=== PATIENT | female | born 1960 | race Caucasian/White ===

== ENCOUNTER 2024-12-25 20:04 | Emergency (ER) | payer OTHER, SELFPAY ==
[2024-12-25 20:10] VITALS: BP 134/85
--- NOTE | 2024-12-25 21:31 | ED.GENMED ---
History of Present Illness
General
Chief Complaint: Fatigue
Time Seen by Provider: 12/25/24 20:32
History of Present Illness
History of Present Illness:
64-year-old female presents the emergency department for sensation of shortness of breath. She states she feels as though she cannot take a deep breath ongoing for the past 2 weeks. She is also concerned because she had an outpatient EKG done
earlier this week with the machine interpretation reading 'left atrial enlargement' and she was advised by her primary care physician to come to the emergency department. Denies chest pain at this time. No fevers or chills. She also is concerned
about feeling fatigued all the time. Of note she is on numerous psychiatric medications and was recently started on naltrexone 2 weeks ago
Review of Systems
Review of Systems
Allergies reviewed?: Yes
All Other Systems: ROS reviewed and negative except as documented in HPI and ROS
Phy Exam
Physical Exam
Physical Exam:
GEN: Well appearing, NAD, WDWN
HEENT: Oral mucosa moist, no scleral icterus
Cardiac: Regular rate and rhythm, no murmurs
Lung: No respiratory distress, no tachypnea, lungs clear to auscultation bilaterally
MSK: No gross deformity or injuries
Skin: Good color, no pallor or jaundice, no rashes
Neuro: AO x3, moves all extremities freely
Psych: Calm, cooperative
Course
Orders/Labs/Results
Orders:
Orders
12/25/24 20:05
Electrocardiogram (*1) Urgent
Reason for Study: Chest Pain
EKG- Treatment ONCE
12/25/24 20:54
CR Chest - 2 Views Urgent
Comment:
Reason For Exam: SOB
Vital Signs
Initial and Last Documented VS:
Initial Vital Signs
Temp Pulse Resp BP Pulse Ox
97.7 F 66 16 134/85 98
12/25/24 20:10 12/25/24 20:10 12/25/24 20:10 12/25/24 20:10 12/25/24 20:10
Last Documented Vital Signs
Temp Pulse Resp BP Pulse Ox
97.7 F 66 16 133/76 93
12/25/24 20:10 12/25/24 21:43 12/25/24 21:43 12/25/24 21:43 12/25/24 21:43
MDM/Problems Addressed
MDM/Problems Addressed:
I have encouraged the patient to discuss with her primary prescriber the multitude of psychiatric medications however have advised her to discontinue naltrexone at this point given that it seems to correlate with the onset of her symptoms. Chest
x-ray is clear, do not see any indication for labs at this time
*Critical Care Note
Total Time (30-74mins, 75-104mins- exclusive of procedures): Not Applicable
ED Attending Note
-
Portions of this chart may have been created with voice recognition software.� Occasional wrong word or��sound alike� substitutions may have occurred due to the inherent limitations of voice recognition software.
Discharge Plan
Departure
Patient Disposition: Home (Routine Discharge)
Date of Disposition: 12/25/24
Time of Disposition: 21:31
Patient with high blood pressure during this ER visit?: No
Discharge Problem:
Shortness of breath
Instructions: Fatigue (DC)
Referrals:
Estrella Carcamo DO [Family Provider] -
Activity Restrictions/Additional Instructions:
Your EKG shows no significant abnormalities
Your Chest X ray is normal
You have no obvious heart murmurs on examination
Discuss adjustments to your psychiatric medications with your primary prescriber
Interventions
Interventions:
*Risk Screen - Suicide Last Done: 12/25/24 21:13
*General Assessment Last Done: 12/25/24 21:13
*Neglect/Abuse Screening Last Done: 12/25/24 21:13
ED- Fall Risk Assessment Last Done: 12/25/24 21:13
*ED COVID-19 Vaccine History Last Done: 12/25/24 21:13
*Nursing Disposition Last Done: 12/25/24 21:44
Discharge Date and Time
Discharge Date/Time: 12/25/24 21:44
Print Language: ANGOLAN
[2024-12-25 21:43] VITALS: BP 133/76
== END 2024-12-25 21:44 | disposition home or self-care (01) ==
LOC: EMR 20:04
PROVIDERS: EMERGENCY PHYSICIAN Emergency Medicine; FAMILY PHYSICIAN Family Medicine
DX: R06.02 Shortness of breath (principal)
CPT/HCPCS: 99283; 71046; 93005

== ENCOUNTER → 2025-03-01 13:52 | Outpatient (REF) | payer OTHER, SELFPAY | LOC: RCS 13:52 | PROVIDERS: ATTENDING PHYSICIAN Nuclear Medicine Nuclear Cardiology; FAMILY PHYSICIAN Family Medicine | DX: R94.31 Abnormal electrocardiogram [ECG] [EKG] (principal); R06.02 Shortness of breath; G47.33 Obstructive sleep apnea (adult) (pediatric); F31.9 Bipolar disorder, unspecified | CPT/HCPCS: 93306 ==